=== PATIENT | female | born 1980 | race American Indian/Alaskan Native ===

== ENCOUNTER 2017-07-13 09:52 | Emergency (ER) | payer OTHER ==
[2017-07-13 10:11] VITALS: TEMP 99.2; BMI 32.5
--- NOTE | 2017-07-13 10:33 | ED PDOC ---
Arrival/HPI - General Chief Complaint: Chest Pain Time Seen by Provider: 07/13/17 10:12 Historian: Patient - History of Present Illness Narrative History of Present Illness (Text): 07/13/17 10:30 This 37 yo female with pmh carpal tunnel, htn, presents to this ED c/o left side CP x 5 days. Patient stated pain is constant, but worsen with movement, deep inspiration, and palpation. Patient denies sob, abdominal pain, blood disorder, leg swelling, calf pain, recent trauma, recent surgery, recent travel , hemoptysis, dizziness or abnormal gait. Time/Duration: Other (see hpi) Quality: Aching Context: Home Past Medical History - Provider Review Nursing Documentation Reviewed: Yes - Infectious Disease Hx of Infectious Diseases: None - Reproductive Menopause: No - Neurological Hx Seizures: Yes - HEENT Hx HEENT Disorder: No - Endocrine/Metabolic Hx Endocrine Disorders: No - Psychiatric Hx Substance Use: No - Anesthesia Hx Anesthesia: No Family/Social History - Physician Review Nursing Documentation Reviewed: Yes Family/Social History: Other (noncontributory) Smoking Status: Unknown If Ever Smoked Hx Alcohol Use: No Hx Substance Use: No Allergies/Home Meds Allergies/Adverse Reactions: Allergies doxycycline Allergy (Verified 07/13/17 11:10) RASH sulfamethoxazole [From Septra] Allergy (Verified 07/13/17 11:10) RASH trimethoprim [From Septra] Allergy (Verified 07/13/17 11:10) RASH Home Medications: Home Meds Medication Instructions Recorded Confirmed Gabapentin [Neurontin] 400 mg PO TID 07/13/17 07/13/17 Naproxen [Naprosyn] 500 mg PO BID 07/13/17 07/13/17 Topiramate [Topamax] 50 mg PO BID 07/13/17 07/13/17 traMADol [Ultram] 50 mg PO TID 07/13/17 07/13/17 Review of Systems - Review of Systems Constitutional: Normal. absent: Fatigue, Weight Change, Fevers Eyes: Normal ENT: Normal Respiratory: Normal. absent: SOB, Cough, Sputum, Wheezing Cardiovascular: Chest Pain. absent: Palpitations, Edema, Calf Pain, WARREN, Orthopnea Gastrointestinal: Normal. absent: Abdominal Pain, Nausea, Vomiting Genitourinary Female: Normal. absent: Dysuria, Frequency, Hematuria Musculoskeletal: Normal. absent: Back Pain, Neck Pain Skin: Normal Neurological: Normal Endocrine: Normal Hemo/Lymphatic: Normal Psychiatric: Normal Physical Exam Vital Signs Temp Pulse Resp BP Pulse Ox 07/13/17 12:45 76 18 147/71 96 07/13/17 10:10 99.2 F 106 H 19 149/78 96 Temperature: Afebrile Blood Pressure: Normal Pulse: Regular Respiratory Rate: Normal Appearance: Positive for: Well-Appearing, Non-Toxic, Comfortable Pain Distress: None Mental Status: Positive for: Alert and Oriented X 3 - Systems Exam Head: Present: Atraumatic, Normocephalic Pupils: Present: PERRL Extroacular Muscles: Present: EOMI Conjunctiva: Present: Normal Mouth: Present: Moist Mucous Membranes Neck: Present: Normal Range of Motion Respiratory/Chest: Present: Clear to Auscultation, Good Air Exchange, Tender to Palpation (mild tenderness over left costochondral area. No skin rash, no abscess. left breast appears normal. Judy ROSALES was reworker). No: Respiratory Distress, Accessory Muscle Use Cardiovascular: Present: Regular Rate and Rhythm, Normal S1, S2. No: Murmurs Abdomen: Present: Normal Bowel Sounds. No: Tenderness, Distention, Peritoneal Signs Back: Present: Normal Inspection Upper Extremity: Present: Normal Inspection. No: Cyanosis, Edema Lower Extremity: Present: Normal Inspection. No: Edema Neurological: Present: GCS=15, CN II-XII Intact, Speech Normal Skin: Present: Warm, Dry, Normal Color. No: Rashes Psychiatric: Present: Alert, Oriented x 3, Normal Insight, Normal Concentration Medical Decision Making ED Course and Treatment: 07/13/17 15:01 Patient stated symptoms have improved with medication given in this ED visit. I ordered a second Troponin 07/13/17 16:55 Patient statsd she feels better. Second Troponin is negative. Patient was recommended to f/u pmd in 1-2 days. Re-evaluation Time: 16:56 Reassessment Condition: Re-examined, Improved - Lab Interpretations Lab Results: 07/13/17 10:50 07/13/17 12:00 Lab Results 07/13/17 15:10: Troponin I < 0.01 07/13/17 12:55: Urine Opiates Screen Negative, Urine Methadone Screen Negative, Ur Barbiturates Screen Negative, Ur Phencyclidine Scrn Negative, Ur Amphetamines Screen Negative, U Benzodiazepines Scrn Negative, U Oth Cocaine Metabols Negative, U Cannabinoids Screen Negative 07/13/17 12:00: Sodium 138, Potassium 4.1, Chloride 104, Carbon Dioxide 25, Anion Gap 13, BUN 12, Creatinine 1.1, Est GFR ( Amer) > 60, Est GFR (Non- Af Amer) 56, Random Glucose 91, Calcium 10.2, Magnesium 2.1, Total Bilirubin 0.3 , AST 20, ALT 38, Alkaline Phosphatase 62, Lactate Dehydrogenase 349, Total Creatine Kinase 79, Troponin I < 0.01, Total Protein 7.4, Albumin 4.0, Globulin 3.3, Albumin/Globulin Ratio 1.2 07/13/17 11:30: Urine HCG, Qual Negative 07/13/17 11:30: Urine Color Yellow, Urine Appearance Clear, Urine pH 6.0, Ur Specific [place] 1.025, Urine Protein Negative, Urine Glucose (UA) Negative, Urine Ketones Negative, Urine Blood Large H, Urine Nitrate Negative, Urine Bilirubin Negative, Urine Urobilinogen 1.0 H, Ur Leukocyte Esterase Large H, Urine RBC 25 - 30, Urine WBC 25 - 30, Ur Epithelial Cells 6 - 8, Urine Bacteria Many, Urine Other Uyeast 07/13/17 10:50: WBC 4.5, RBC 4.52, Hgb 10.9 L, Hct 36.0, MCV 79.6 L, MCH 24.1 L , MCHC 30.3 L, RDW 13.7, Plt Count 272, MPV 11.5 H, Gran % 47.0 L, Lymph % (Auto ) 38.1 H, [place] % (Auto) 8.7 H, Eos % (Auto) 5.8 H, Baso % (Auto) 0.4, Gran # 2.11, Lymph # 1.7, [place] # 0.4, Eos # 0.3, Baso # 0.02 I have reviewed the lab results: Yes Interpretation: Abnormal lab values (mild anemia, possibel cystitis) - RAD Interpretation Narrative RAD Interpretations (Text): 07/13/17 14:53 CTA chest PE protocol Indication: CP r/o PE Technique: Contiguous axial images were obtained through the chest with intravenous contrast enhancement. Sagittal and coronal reconstructions were generated and reviewed. This CT exam was performed using 1 or more of the following dose reduction techniques: Automated exposure control, adjustment of the MAA and/or kV according to patient size, and/or use of iterative reconstruction technique. IV Contrast: 100 mL Visipaque 320 Radiation dose (DLP): 425.71 MGy-cm. Comparison: Chest xray performed 07/13/17 Findings: Visualized portions of the inferior thyroid gland appear unremarkable. The mediastinal and hilar vascular structures appear within normal limits. The heart appears within normal limits of size. No large central or segmental pulmonary embolus evident. No focal consolidation. No pleural effusion. No pneumothorax. No suspicious pulmonary nodules measuring greater than 5 mm. Limited visualized portions of the upper abdomen appear grossly unremarkable. No acute osseous abnormality is detected. Impression: No large central or segmental pulmonary embolus identified. Radiology Orders: 07/13/17 10:37 CHEST ONE VIEW [RAD] Stat 07/13/17 10:38 ANGIO CHEST PE PROTOCOL [CT] Stat - EKG Interpretation Interpreted by ED Physician: Yes (Sinus tachycardia @ [address] changes) Type: 12 lead EKG Comparison: No previous EKG avail. - Medication Orders Current Medication Orders: Discontinued Medications Fluconazole (Diflucan) 200 mg PO STAT STA PRN Reason: Protocol Stop: 07/13/17 13:32 Sodium Chloride (Sodium Chloride 0.9%) 500 mls @ 999 mls/hr IV .Q31M STA Stop: 07/13/17 11:08 Last Admin: 07/13/17 12:16 Dose: 999 mls/hr eMAR Start Stop Document 07/13/17 12:16 HI (Rec: 07/13/17 12:17 [place] [id number]) Intravenous Solution Start Date 07/13/17 Start Time 12:17 Ketorolac Tromethamine (Toradol) 30 mg IVP STAT STA Stop: 07/13/17 10:38 Last Admin: 07/13/17 12:17 Dose: 30 mg MAR Pain Assessment Document 07/13/17 12:17 HI (Rec: 07/13/17 12:17 [place] [id number]) Pain Reassessment Is this a pain reassessment? No IVP Administration Document 07/13/17 12:17 HI (Rec: 07/13/17 12:17 [place] [id number]) Charges for Administration # of IVP Administrations 1 Nitrofurantoin Macrocrystals (Macrobid) 100 mg PO STAT STA Stop: 07/13/17 14:55 Disposition/Present on Arrival - Present on Arrival Any Indicators Present on Arrival: No History of DVT/PE: No History of Uncontrolled Diabetes: No Urinary Catheter: No History of Decub. Ulcer: No History Surgical Site Infection Following: None - Disposition Have Diagnosis and Disposition been Completed?: Yes Diagnosis: Non-cardiac chest pain, Vulvovaginal candidiasis, Cystitis Disposition: HOME/ ROUTINE Disposition Time: 16:59 Patient Plan: Admission Patient Problems: Current Active Problems Problem Status Onset Cystitis Acute Non-cardiac chest pain Acute Vulvovaginal candidiasis Acute Condition: IMPROVED Discharge Instructions (ExitCare): Chest Wall Pain (ED) Additional Instructions: Call private doctor for follow up visit in 1-2 days. Take medication as instructed with food. Return to emergency if symptoms worsen. Prescriptions: Famotidine [Pepcid] 40 mg PO DAILY #10 tablet Naproxen 500 mg PO BID PRN #14 tab PRN Reason: Pain, Severe (8-10) Nitrofurantoin Macrocrystals [Macrobid] 100 mg PO BID #14 cap Referrals: [facility], [Non-Staff] - Follow up with primary Nani Lee MD [Primary Care Provider] - Follow up with primary Forms: [facility] (Turkish), WORK NOTE
[2017-07-13] MEDS ORDERED: Sodium Chloride 0.9% 500 ML IV STA (10:38)
[2017-07-13 11:04] LABS: BASO # 0.02 K/mm3 (0.0-2.0); BASO % 0.4 % (0.0-3.0); EOS # 0.3 (0.0-0.7); EOS % 5.8 % (1.5-5.0); GRAN # 2.11 (1.4-6.5); HEMOGLOBIN 10.9 g/dL (12.0-16.0); LYMPH # 1.7 (1.2-3.4); LYMPH % 38.1 % (22.0-35.0); MEAN CELL VOLUME 79.6 fl (80.0-105.0); MEAN CORPUSCULAR HEMOGLOBIN 24.1 pg (25.0-35.0); MEAN CORPUSCULAR HGB CONC 30.3 g/dl (31.0-37.0); MEAN PLATELET VOLUME 11.5 fl (7.0-11.0); MONO # 0.4 (0.1-0.6); MONO % 8.7 % (1.0-6.0); RBC 4.52 10^6/uL (3.5-6.1); RED CELL DISTRIBUTION WIDTH 13.7 % (11.5-14.5); WHITE BLOOD COUNT 4.5 10^3/ul (4.5-11.0)
[2017-07-13 11:46] LABS: URINE BILIRUBIN NEGATIVE (NEGATIVE); URINE BLOOD LARGE (NEGATIVE); URINE GLUCOSE (UA) NEGATIVE (NEGATIVE); URINE LEUKOCYTE ESTERASE LARGE Leu/uL (NEGATIVE); URINE NITRATE NEGATIVE (NEGATIVE); URINE PROTEIN NEGATIVE mg/dL (<30 mg/dL)
[2017-07-13 11:48] LABS: URINE APPEARANCE CLEAR (CLEAR); URINE COLOR YELLOW (YELLOW)
[2017-07-13 12:16] LABS: URINE BACTERIA MANY (NEG); URINE RBC 25 - 30 /hpf (0-2); URINE WBC 25 - 30 /hpf (0-6)
[2017-07-13 12:20] LABS: ALB/GLOB RATIO 1.2 (1.1-1.8); ALT/SGPT 38 U/L (7-56); AST/SGOT 20 U/L (14-36); BLOOD UREA NITROGEN 12 mg/dL (7-21); CALCIUM 10.2 mg/dL (8.4-10.5); GFR AFRICAN-AMERICAN > 60; GFR NON-AFRICAN AMERICAN 56; MAGNESIUM 2.1 mg/dL (1.7-2.2)
[2017-07-13 12:31] LABS: TROPONIN I < 0.01 ng/mL
[2017-07-13] MEDS ORDERED: Iodixanol 320 MG/ML 100 ML BOTTLE IV ONE (13:03)
[2017-07-13 13:28] LABS: BARBITURATES, UR NEGATIVE (NEGATIVE); BENZODIAZEPINES, UR NEGATIVE (NEGATIVE); OPIATES, UR NEGATIVE (NEGATIVE); PHENCYCLIDINE, UR NEGATIVE (NEGATIVE)
--- NOTE | 2017-07-13 13:55 | RAD ---
HISTORY: CP COMPARISON: None available. TECHNIQUE: Chest, one view. FINDINGS: Examination limited by habitus. LUNGS: No focal consolidation. Please note that chest x-ray has limited sensitivity for the detection of pulmonary masses. PLEURA: No significant pleural effusion identified. No definite pneumothorax . CARDIOVASCULAR: The cardiomediastinal silhouette appears within normal limits of size. OSSEOUS STRUCTURES: No acute osseous abnormality identified. VISUALIZED UPPER ABDOMEN: Unremarkable. OTHER FINDINGS: None. IMPRESSION: No focal consolidation, significant pleural effusion, or definite pneumothorax identified.
--- NOTE | 2017-07-13 14:05 | CT ---
CTA chest PE protocol Indication: CP r/o PE Technique: Contiguous axial images were obtained through the chest with intravenous contrast enhancement. Sagittal and coronal reconstructions were generated and reviewed. This CT exam was performed using 1 or more of the following dose reduction techniques: Automated exposure control, adjustment of the MAA and/or kV according to patient size, and/or use of iterative reconstruction technique. IV Contrast: 100 mL Visipaque 320 Radiation dose (DLP): 425.71 MGy-cm. Comparison: Chest xray performed 07/13/17 Findings: Visualized portions of the inferior thyroid gland appear unremarkable. The mediastinal and hilar vascular structures appear within normal limits. The heart appears within normal limits of size. No large central or segmental pulmonary embolus evident. No focal consolidation. No pleural effusion. No pneumothorax. No suspicious pulmonary nodules measuring greater than 5 mm. Limited visualized portions of the upper abdomen appear grossly unremarkable. No acute osseous abnormality is detected. Impression: No large central or segmental pulmonary embolus identified.
[2017-07-13 17:20] VITALS: BP 142/82; PULSE 72; RESP 16; O2SAT 99
--- NOTE | 2017-07-13 17:58 | CARD ---
APPROVED REPORT EKG Measurement Heart [id number] <Conclusion> Sinus tachycardia Possible Left atrial enlargement Left ventricular hypertrophy Nonspecific T wave abnormality Abnormal ECG
== END 2017-07-13 17:17 | disposition home or self-care (01) ==
LOC: MERGE 09:52 → ED 09:52
DX: R07.89 Other chest pain (principal); N30.90 Cystitis, unspecified without hematuria; B37.3 Candidiasis of vulva and vagina; I10 Essential (primary) hypertension
CPT/HCPCS: 71045; 71275; 80053; 80324; 80345; 80346; 80349; 80353; 80358; 80361; 81001; 82550; 83615; 83735; 83992; 84484; 84703; 85025; 87086; 93005; 96374; 99285; J1885; J7040; Q9967